=== PATIENT | female | born 1990 | race African-American/Black ===

== ENCOUNTER 2018-01-26 12:07 | Emergency (ER) | payer OTHER ==
[2018-01-26] MEDS: METOCLOPRAMIDE 10 MG TAB PO (13:47)
== END 2018-01-26 14:02 | disposition home or self-care (01) ==
LOC: M ED 12:07
DX: S09.90XA Unspecified injury of head, initial encounter (principal); R51 Headache; W19.XXXA Unspecified fall, initial encounter; Y92.89 Other specified places as the place of occurrence of the external cause; G43.909 Migraine, unspecified, not intractable, without status migrainosus; Z87.891 Personal history of nicotine dependence; Z79.899 Other long term (current) drug therapy
CPT/HCPCS: 70450

== ENCOUNTER 2018-02-14 09:22 | Day surgery (SDC) | payer OTHER ==
[~2018-02-14 09:22] MED LIST: NS 1,000 ML IV; SODIUM CHLORIDE 0.9% 1000ML IV
[2018-02-14 09:52] LABS: HEMATOCRIT 38.1 % (36.0-47.0); HEMOGLOBIN 12.8 g/dl (12.0-15.5); MEAN CORPUSCULAR HEMOGLOBIN 30.3 pg (27.0-33.0); MEAN CORPUSCULAR HGB CONC 33.6 g/dl (32.0-36.5); MEAN CORPUSCULAR VOLUME 90.1 fl (80.0-96.0); PLATELET COUNT, AUTOMATED 332 10^3/uL (150-450); RED BLOOD COUNT 4.23 10^6/uL (4.00-5.40); RED CELL DISTRIBUTION WIDTH 12.9 % (11.5-14.5); WHITE BLOOD COUNT 4.7 10^3/uL (4.0-10.0)
[2018-02-14] MEDS: LR 1,000 ML IV (10:15)
[2018-02-14] MEDS ORDERED: PROPOFOL 200 MG/20 ML VIAL As Ordered (10:18)
[2018-02-14] MEDS ORDERED: fentaNYL 100 MCG/2 ML INJECTION (J3010) As Ordered (10:18)
[2018-02-14] MEDS ORDERED: MIDAZOLAM INJ 2 MG/2 ML VIAL (J2250) As Ordered (10:18)
[2018-02-14] MEDS ORDERED: ONDANSETRON 4MG/2ML VIAL (J2405) As Ordered (10:18)
[2018-02-14] MEDS ORDERED: dexameTHASONE 4 MG/ML 1ML VIAL (J1100) As Ordered (10:18)
[2018-02-14] MEDS ORDERED: KETOROLAC 60 MG/2 ML VIAL (J1885) As Ordered (10:18)
[2018-02-14] MEDS ORDERED: LIDOCAINE 2% INJ 100 MG/5 ML SDV (FOR ANES.) As Ordered (10:18)
[2018-02-14 10:21] LABS: ANION GAP 8 MEQ/L (8-16); BLOOD UREA NITROGEN 16 MG/DL (7-18); CALCIUM LEVEL 9.1 MG/DL (8.5-10.1); CARBON DIOXIDE LEVEL 24 MEQ/L (21-32); CHLORIDE LEVEL 110 MEQ/L (98-107); CREATININE FOR GFR 1.13 MG/DL (0.55-1.30); GLOMERULAR FILTRATION RATE > 60.0 (>60); GLUCOSE, FASTING 78 MG/DL (70-100); HCG, SERUM QUANTITATIVE < 1.0 MIU/ML; POTASSIUM SERUM 4.2 MEQ/L (3.5-5.1); SODIUM LEVEL 142 MEQ/L (136-145)
[2018-02-14] MEDS: ACETAMINOPHEN 650 MG SUPP As Ordered (10:54)
[2018-02-14] MEDS: ceFAZolin SOD 1 GM in D5W MINI-BAG PLUS 50 ML IV (11:20)
[2018-02-14] MEDS ORDERED: ePHEDrine SULFATE 25 MG/5 ML(5MG/ML) SYRINGE As Ordered (11:22)
[2018-02-14] MEDS: ACETAMINOPHEN 650 MG SUPP PR (11:30)
[2018-02-14] MEDS ORDERED: ONDANSETRON 4MG/2ML VIAL (J2405) IV (12:30)
[2018-02-14] MEDS ORDERED: oxyCODONE 5MG TAB PO (12:30)
[2018-02-14] MEDS ORDERED: LR 1,000 ML IV (12:30)
[2018-02-14] MEDS ORDERED: fentaNYL 100 MCG/2 ML INJECTION (J3010) IV (12:30)
[2018-02-14] MEDS ORDERED: KETOROLAC 30 MG/ML VIAL (J1885) IV (12:45)
== END 2018-02-14 13:35 | disposition home or self-care (01) ==
LOC: M SDC 09:22
DX: N88.2 Stricture and stenosis of cervix uteri (principal); Z30.014 Encounter for initial prescription of intrauterine contraceptive device; M54.9 Dorsalgia, unspecified; R51 Headache; F32.81 Premenstrual dysphoric disorder; R29.898 Other symptoms and signs involving the musculoskeletal system; Z79.899 Other long term (current) drug therapy
CPT/HCPCS: 58558

== ENCOUNTER 2018-04-30 06:17 | Emergency (ER) | payer OTHER ==
[2018-04-30 06:41] LABS: BEDSIDE GLUCOSE 96 MG/DL (70-105)
== END 2018-04-30 07:07 | disposition home or self-care (01) ==
LOC: M ED 06:17
DX: G62.9 Polyneuropathy, unspecified (principal); Z79.899 Other long term (current) drug therapy
CPT/HCPCS: 99283